=== PATIENT | female | born 1945 | race Caucasian/White ===

== ENCOUNTER → 2018-02-06 | Outpatient (CLI) | payer MEDICARE, BC ==
[~2018-02-06] MED LIST: ACET1TAB52 PO; AMLO5TAB7 PO; ASPI325T17 PO; CALC-126 PO; CELE200C PO; GABA-826 PO; HYDR-3240 PO; LOSA50TA7 PO; MORP-52 PO; OXYC5CAP2 PO; PRAV20TA2 PO
== END | disposition home or self-care (01) ==
LOC: CFH 15:07
PROVIDERS: ATTEND Orthopaedic Surgery
DX: M79.89 Other specified soft tissue disorders (principal)

== ENCOUNTER → 2019-04-08 | Outpatient (CLI) | payer MEDICARE, BC ==
[~2019-04-08] MED LIST changes: +AMLO-150 PO; -AMLO5TAB7 PO; +LOSA50TA14 PO; -LOSA50TA7 PO
== END | disposition home or self-care (01) ==
LOC: CFH 10:49
PROVIDERS: ATTEND Family Medicine
DX: I08.3 Combined rheumatic disorders of mitral, aortic and tricuspid valves (principal)
CPT/HCPCS: 93306

== ENCOUNTER 2019-07-14 13:55 | Outpatient (CLI) | payer MEDICARE, BC ==
[2019-07-14] MEDS ORDERED: LOSA25TA25 PO (14:39)
[2019-07-14] MEDS ORDERED: FAMO40TA61 PO (14:39)
== END 2019-07-14 23:59 | disposition home or self-care (01) ==
LOC: STAR 13:55
PROVIDERS: ATTEND Orthopaedic Surgery
DX: Z02.9 Encounter for administrative examinations, unspecified (principal)

== ENCOUNTER 2019-07-15 06:43 | Day surgery (SDC) | payer MEDICARE, BC ==
[2019-07-14 14:54] LABS: ALBUMIN 3.8 g/dL (3.4-5.0); ANION GAP 3 mmol/L (5-15); CALCIUM 8.8 mg/dL (8.5-10.1); CHLORIDE 110 mmol/L (98-107)
[2019-07-14 15:00] LABS: ALANINE AMINOTRANSFERASE 21 U/L (12-78); ALKALINE PHOSPHATASE 89 U/L (45-117); BILIRUBIN,TOTAL 0.5 mg/dL (0.2-1.0); CREATININE 1.07 mg/dL (0.55-1.02); TOTAL PROTEIN 7.6 g/dL (6.4-8.2)
[~2019-07-15] VITALS: Ht 154.9 cm; Wt 63.7 kg
[~2019-07-15 06:43] MED LIST changes: +FAMO40TA61 PO; +LOSA25TA25 PO
[2019-07-15] MEDS ORDERED: LIDOCAINE 1%, 20ML ONE (07:01)
[2019-07-15] MEDS ORDERED: BUPIVACAINE/PF 0.5% ONE (07:01)
[2019-07-15] MEDS ORDERED: LACTATED RINGERS 1,000 ML IV SCH (07:20)
[2019-07-15 07:23] VITALS: BP 116/72
[2019-07-15] MEDS ORDERED: HYDROmorphone 1 MG/ML, 1ML INJ IVPush PRN (08:30)
[2019-07-15] MEDS ORDERED: LABETALOL 5MG/ML, 20ML IV PRN (08:30)
[2019-07-15] MEDS ORDERED: MEPERIDINE/PF 25MG/ML,1ML IVPush PRN (08:30)
[2019-07-15] MEDS ORDERED: hydrALAzine 20 MG/ML, 1ML IV PRN (08:30)
[2019-07-15] MEDS ORDERED: FENTANYL PF 100 MCG/2ML IV PRN (08:30)
[2019-07-15] MEDS ORDERED: ACETAMINOPHEN 325 MG TABLET PO PRN (08:30)
[2019-07-15] MEDS ORDERED: OXYcodone 5 MG/5 ML ORAL.SOL UDC PO PRN (08:30)
[2019-07-15] MEDS ORDERED: ONDANSETRON 2MG/ML, 2ML IV PRN (08:30)
[2019-07-15] MEDS ORDERED: PROPOFOL 10 MG/ML, 20ML ONE ×2 (09:49)
[2019-07-15] MEDS ORDERED: CEFAZOLIN 1,000 MG ONE (15:01)
== END 2019-07-15 11:48 | disposition home or self-care (01) ==
LOC: OUT 06:43
PROVIDERS: ATTEND Orthopaedic Surgery
DX: M71.341 Other bursal cyst, right hand (principal); M25.741 Osteophyte, right hand; I10 Essential (primary) hypertension; G47.33 Obstructive sleep apnea (adult) (pediatric); K21.9 Gastro-esophageal reflux disease without esophagitis; E78.5 Hyperlipidemia, unspecified; M19.90 Unspecified osteoarthritis, unspecified site; Z79.899 Other long term (current) drug therapy; Z88.1 Allergy status to other antibiotic agents; Z88.5 Allergy status to narcotic agent; Z88.8 Allergy status to other drugs, medicaments and biological substances; Z90.710 Acquired absence of both cervix and uterus; Z98.890 Other specified postprocedural states; Z82.61 Family history of arthritis; Z82.49 Family history of ischemic heart disease and other diseases of the circulatory system
CPT/HCPCS: 26160; 36415; 80053; 88304; 93005; J0690; J2704